=== PATIENT | male | born 1975 | race Caucasian/White ===

== ENCOUNTER 2018-02-21 17:01 | Emergency (ER) | payer OTHER ==
[~2018-02-21] VITALS: Ht 177.8 cm; Wt 90.7 kg
[2018-02-21] MEDS ORDERED: KEFLEX500 M1 PO (18:10)
[2018-02-21 18:23] VITALS: BP 127/80
== END 2018-02-21 18:24 | disposition home or self-care (01) ==
LOC: M.ERS 17:01
DX: S62.643A Nondisplaced fracture of proximal phalanx of left middle finger, initial encounter for closed fracture (principal); Z88.1 Allergy status to other antibiotic agents; W23.0XXA Caught, crushed, jammed, or pinched between moving objects, initial encounter; Y93.89 Activity, other specified; Y92.89 Other specified places as the place of occurrence of the external cause; Y99.8 Other external cause status